=== PATIENT | female | born 1965 | race Caucasian/White ===

== ENCOUNTER 2019-03-21 22:33 | Emergency (ER) | payer OTHER ==
[~2019-03-21] VITALS: Ht 170.2 cm; Wt 83.9 kg
[~2019-03-21 22:33] MED LIST: ABILIFY 5 MG TAB5 M1 PO; ABILIFY10 MG PO; AMBIEN 5 MG TABL5 M1 PO; APAP500 PO; ATIVAN0.5 MG PO; BACTRIM DS TAB1 EACH PO; CELEXA 20 MG TA20 M1 PO; CITRATE OF MAG296 ML PO; DIVIGEL0.25 MG TD; ELMIRON; ELMIRON PO; FLEXERIL PO; LORTAB 5 MG/5001 TA1 PO; NITROQUICK0.4 MG SL; NORCO 5-325 TA1 EACH PO; PERCOCET 5-3251 EACH PO; REMERON30 M1 PO; TAMSULOSIN HCL0.4 MG PO; TRAZODONE HCL50 MG PO; XANAX 0.25 MG0.25 MG PO; ZOCOR40 MG PO
[2019-03-21 23:04] LABS: ABSOLUTE NEUTROPHILS 6.7 thou/uL (1.4-8.2); BASOPHILS 0.3 % (0.0-2.0); HEMATOCRIT 41.9 % (37.0-47.0); LYMPHOCYTES 30.7 % (24.0-44.0); MCH 27.7 pg (26.0-34.0); MCHC 33.3 g/dL (28.0-37.0); MCV 83.1 fL (80.0-100.0); MONOCYTES 6.3 % (1.0-8.0); PLATELET COUNT 211 thou/uL (150-400); POLYS 60.7 % (36.0-66.0); RBC 5.05 mil/uL (4.20-5.00); RDW 14.9 % (10.5-14.5)
[2019-03-21 23:15] LABS: ANION GAP 10 mmol/L (7-16); BUN 17 mg/dL (7-18); CALCIUM 8.6 mg/dL (8.5-10.1); CHLORIDE 105 mmol/L (98-107); CO2 26 mmol/L (21-32); GLUCOSE 90 mg/dL (74-106); POTASSIUM 3.8 mmol/L (3.5-5.1); SODIUM 141 mmol/L (136-145)
[2019-03-21 23:24] LABS: LIPASE 364 U/L (73-393); TROPONIN-I <0.06 ng/mL (<0.06)
[2019-03-22] MEDS ORDERED: PROTONIX 20 MG20 MG PO (01:12)
[2019-03-22 02:00] VITALS: BP 121/71
--- NOTE | 2019-03-22 08:30 | EKG ---
[place] [address] [facility] [place] [address] ELECTROCARDIOGRAM REPORT Name: ANNIE MCKEON Room #: DEP [facility]#: [id number] ������������������ Admission: 03/21/19 ������������������ Attend Phys: Discharge: 03/22/19 ������������������ Date of : 61 Report #: [id number] ����������������������������������������������������������������� [id number] THIS REPORT FOR: //name// [facility] ED Test Date: 2019-03-21 Test Time: 22:39:01 Pat Name: ANNIE MCKEON Department: Room: Gender: F [employer]: REINA : 1965 Requested By: Jefry Dugan Order Number: [id number] MD: Tommie Cristina Measurements Intervals [place] Rate: 64 P: 49 GA: 169 QRS: 15 QRSD: 105 T: 33 QT: 435 QTc: 449 Interpretive Statements Sinus rhythm RSR' in V1 or V2, right VCD Compared to ECG 05/25/2015 23:19:17 No significant change was found Electronically Signed On 03-22-2019 8:30:37 CDT by Tommie Cristina [email or web address] ��������������������������������������������� <ELECTRONICALLY SIGNED> ���������������������������������������� By: Tommie Cristina MD, [facility] ��������������������������������������������� 03/22/19829 38 38 Tommie Cristina MD, [facility] /EPI
[2019-03-23] MEDS ORDERED: CYCLOBENZAPRINE5 MG PO (14:53)
[2019-03-23] MEDS ORDERED: NORCO 5-325 TA1 EAC1 PO (14:53)
== END 2019-03-22 02:07 | disposition home or self-care (01) ==
LOC: ER 22:33
PROVIDERS: Emergency Medicine
DX: K64.4 Residual hemorrhoidal skin tags (principal); R10.13 Epigastric pain; K92.0 Hematemesis; F32.9 Major depressive disorder, single episode, unspecified; Z88.6 Allergy status to analgesic agent; Z88.8 Allergy status to other drugs, medicaments and biological substances; Z86.14 Personal history of Methicillin resistant Staphylococcus aureus infection; Z90.49 Acquired absence of other specified parts of digestive tract; Z87.440 Personal history of urinary (tract) infections; Z90.711 Acquired absence of uterus with remaining cervical stump

== ENCOUNTER 2019-03-23 12:54 | Emergency (ER) | payer OTHER ==
[~2019-03-23] VITALS: Ht 167.6 cm; Wt 81.7 kg
[~2019-03-23 12:54] MED LIST changes: +PROTONIX 20 MG20 MG PO
[2019-03-23] MEDS ORDERED: NORCO 5-325 TA1 EAC1 PO (14:53)
[2019-03-23] MEDS ORDERED: CYCLOBENZAPRINE5 MG PO (14:53)
[2019-03-23 15:15] VITALS: BP 128/77
== END 2019-03-23 15:32 | disposition home or self-care (01) ==
LOC: ER 12:54
DX: M54.2 Cervicalgia (principal); M54.5 Low back pain; F32.9 Major depressive disorder, single episode, unspecified; F17.200 Nicotine dependence, unspecified, uncomplicated; Z90.49 Acquired absence of other specified parts of digestive tract; Z86.14 Personal history of Methicillin resistant Staphylococcus aureus infection; Z90.711 Acquired absence of uterus with remaining cervical stump; Z87.440 Personal history of urinary (tract) infections; Z88.8 Allergy status to other drugs, medicaments and biological substances; V89.2XXA Person injured in unspecified motor-vehicle accident, traffic, initial encounter; Y93.I9 Activity, other involving external motion; Y92.89 Other specified places as the place of occurrence of the external cause; Y99.8 Other external cause status